=== PATIENT | female | born 1960 | race Caucasian/White ===

== ENCOUNTER 2019-06-18 10:11 | Emergency (ER) | payer BC ==
[~2019-06-18] VITALS: Ht 165.1 cm; Wt 108.9 kg
[2019-06-18] MEDS ORDERED: SYNTHROID175 MC1 PO (10:49)
[2019-06-18] MEDS ORDERED: Sudogest60 MG PO (11:13)
[2019-06-18] MEDS ORDERED: Augmentin 875-1 EACH PO (11:13)
== END 2019-06-18 11:56 | disposition home or self-care (01) ==
LOC: ER 10:11
DX: H65.92 Unspecified nonsuppurative otitis media, left ear (principal)
CPT/HCPCS: 99282

== ENCOUNTER → 2019-09-20 | Outpatient (CLI) | payer BC ==
[~2019-09-20] MED LIST: Augmentin 875-1 EACH PO; SYNTHROID175 MC1 PO; Sudogest60 MG PO
== END ==
LOC: LAB EV 08:03 → LAB SHORT 08:03
DX: M79.662 Pain in left lower leg (principal)
CPT/HCPCS: 85379

== ENCOUNTER 2020-09-05 09:21 | Day surgery (SDC) | payer BC ==
[~2020-09-05] VITALS: Ht 165.1 cm; Wt 107.8 kg
--- NOTE | 2020-09-05 10:51 | NUR ---
09/05/20 1051 Brigida Solomon ASSISTED PT TO RESTROOM 1040 PT UPDATED AT THIS TIME THAT IS STILL WORKING ON PROCEDURE AHEAD OF HER. WARM BLANKETS PROVIDED, PT STATES SHE IS COMFORTABLE AT THIS TIME.
== END 2020-09-05 12:00 | disposition home or self-care (01) ==
LOC: ORSCSDS 09:21
PROVIDERS: Student in an Organized Health Care Education/Training Program
PROC: 0DB48ZX Excision of Esophagogastric Junction, Via Natural or Artificial Opening Endoscopic, Diagnostic (ICD-10-PCS; principal; 2020-09-05 10:45)
PROC: 0DB58ZX Excision of Esophagus, Via Natural or Artificial Opening Endoscopic, Diagnostic (ICD-10-PCS; principal; 2020-09-05 10:45)
PROC: 0DB68ZX Excision of Stomach, Via Natural or Artificial Opening Endoscopic, Diagnostic (ICD-10-PCS; principal; 2020-09-05 10:45)
DX: R13.10 Dysphagia, unspecified (principal); I10 Essential (primary) hypertension; E78.5 Hyperlipidemia, unspecified; Z79.899 Other long term (current) drug therapy
CPT/HCPCS: 88305; 88342; J2704; J7120

== ENCOUNTER → 2021-01-01 | Outpatient (CLI) | payer BC ==
[~2021-01-01] MED LIST changes: +TELM40
== END | disposition home or self-care (01) ==
LOC: LAB SHORT 15:03 → LAB 15:03
DX: L57.8 Other skin changes due to chronic exposure to nonionizing radiation (principal); L81.4 Other melanin hyperpigmentation
CPT/HCPCS: 88305

== ENCOUNTER 2021-01-06 09:38 | Day surgery (SDC) | payer BC ==
[~2021-01-06] VITALS: Ht 165.1 cm; Wt 103.0 kg
[~2021-01-06 09:38] MED LIST changes: -TELM40
[2021-01-06] MEDS ORDERED: TELM40 (09:54)
== END 2021-01-06 11:51 | disposition home or self-care (01) ==
LOC: ORSCSDS 09:38
PROVIDERS: Student in an Organized Health Care Education/Training Program
PROC: 0DBH8ZX Excision of Cecum, Via Natural or Artificial Opening Endoscopic, Diagnostic (ICD-10-PCS; principal; 2021-01-06 11:00)
PROC: 0DBM8ZX Excision of Descending Colon, Via Natural or Artificial Opening Endoscopic, Diagnostic (ICD-10-PCS; principal; 2021-01-06 11:00)
PROC: 0DBN8ZX Excision of Sigmoid Colon, Via Natural or Artificial Opening Endoscopic, Diagnostic (ICD-10-PCS; principal; 2021-01-06 11:00)
DX: Z12.11 Encounter for screening for malignant neoplasm of colon (principal); Z86.010 Personal history of colon polyps; D12.0 Benign neoplasm of cecum; D12.4 Benign neoplasm of descending colon; D12.5 Benign neoplasm of sigmoid colon; E11.9 Type 2 diabetes mellitus without complications; K21.9 Gastro-esophageal reflux disease without esophagitis; Z79.899 Other long term (current) drug therapy
CPT/HCPCS: 88305; J0330; J0461; J2405; J2704

== ENCOUNTER → 2021-07-03 | Outpatient (CLI) | payer BC ==
[~2021-07-03] MED LIST changes: +TELM40
[2021-07-05 13:09] LABS: HPV 16 Negative (Negative); HPV 18 Negative (Negative); HPV OTHER HR TYPES Negative (Negative)
== END | disposition home or self-care (01) ==
LOC: LAB SHORT 13:10
PROVIDERS: Advanced Practice Midwife
DX: Z01.419 Encounter for gynecological examination (general) (routine) without abnormal findings (principal)
CPT/HCPCS: 87624; G0123

== ENCOUNTER 2024-04-24 05:47 | Day surgery (SDC) | payer BC ==
[2024-04-24] VITALS (19 sets, daily range): BP systolic 110–140; BP diastolic 70–92
[~2024-04-24] VITALS: Ht 167.6 cm; Wt 105.5 kg
[~2024-04-24 05:47] MED LIST changes: +EUTHYROX125 MCG PO; +EZET10 PO; +PANT20 PO; +Roxicodone5 MG PO; -SYNTHROID175 MC1 PO; -TELM40; +TELM40 PO; +TRAM50 PO
[2024-04-24] MEDS ORDERED: Lactated Ringer's 1,000 ML IV SCH ×2 (06:15→09:25)
[2024-04-24] MEDS ORDERED: CeFAZolin Sodium 2,000 MG in NS 100 ML IV SCH (06:15)
[2024-04-24] MEDS ORDERED: CeFAZolin Sodium 2,000 MG VIAL ONE (06:53)
--- NOTE | 2024-04-24 07:00 | NUR ---
Ambulatory in Day SurgeryPre-Op teaching done. Pt verbalizes understanding. History, Chart, Medications and Allergies reviewed before start of procedure.Patient confirms NPO status and agrees with scheduled surgery. Patient States Post-Procedure ride home has been arranged. Patient reports completing Chlorhexadine shower X2 prior to admission to hospital.
[2024-04-24] MEDS ORDERED: Bupivacaine 0.5% HCl 5 MG/ML 30MLVIAL ONE (07:01)
[2024-04-24] MEDS ORDERED: Midazolam HCl 1MG / ML 2ML Vial ONE (07:23)
[2024-04-24] MEDS ORDERED: Midazolam HCl 1MG / ML 2ML Vial IV ONE (07:25)
[2024-04-24] MEDS ORDERED: FentaNYL Citrate 50 MCG/ML 2 ML Injection ONE ×3 (07:28→09:52)
[2024-04-24] MEDS ORDERED: propofoL 20 ML IV ONE (07:28)
[2024-04-24] MEDS ORDERED: Rocuronium Bromide 10 MG/ML 5ML Injection IV ONE ×2 (07:30→07:54)
[2024-04-24] MEDS ORDERED: Ondansetron HCl 2 MG / ML 2ML Vial ONE (07:40)
[2024-04-24] MEDS ORDERED: Dexamethasone Sod Phos 10 MG/ML 1ML VIAL ONE (07:40)
[2024-04-24] MEDS ORDERED: Glycopyrrolate 0.2 MG/ML 5ML VIAL ONE (07:54)
[2024-04-24] MEDS ORDERED: Phenylephrine HCl 10mg/ml 1 ml Vial ONE (07:54)
[2024-04-24] MEDS ORDERED: Sugammadex Sodium 200 MG/2ML SDV (100 MG/ML) ONE (09:07)
[2024-04-24] MEDS ORDERED: Ketorolac Tromethamine 30mg Vial ONE (09:07)
[2024-04-24] MEDS ORDERED: Simethicone 80 MG Chew PO PRN (09:25)
[2024-04-24] MEDS ORDERED: OxyCODONE HCL 5 MG TAB PO PRN (09:25)
[2024-04-24] MEDS ORDERED: DiphenhydrAMINE HCL 25 MG Cap PO PRN (09:25)
[2024-04-24] MEDS ORDERED: FLU VACC TS2024-25(6MOS UP)/PF 45 MCG/0.5 ML SYRINGE IM SCH (09:25)
[2024-04-24] MEDS ORDERED: Acetaminophen 500 MG Tab PO PRN (09:25)
[2024-04-24] MEDS ORDERED: Ondansetron 4 MG TAB PO PRN (09:25)
[2024-04-24] MEDS ORDERED: Metoclopramide HCl 5MG / ML 2ML Vial IV PRN (09:30)
[2024-04-24] MEDS ORDERED: Naloxone HCl 0.4MG / ML 1ML Vial IV PRN (09:30)
[2024-04-24] MEDS ORDERED: HYDROmorphone HCl/Pf 1MG SYR IV PRN (09:30)
[2024-04-24] MEDS ORDERED: Metoclopramide HCl 10 MG Tab PO PRN (09:30)
[2024-04-24] MEDS ORDERED: Ondansetron HCl 2 MG / ML 2ML Vial IV PRN (09:30)
[2024-04-24] MEDS ORDERED: Ipratropium/Albuterol SulF 2.5-0.5MG/3 ML Amp ONE (09:51)
--- NOTE | 2024-04-24 10:55 | NUR ---
ARRIVAL TO SURGICAL UNIT VIA CHRISTIANO SMITH & SBA TO BATHROOM. HAS URGE TO VOID BUT UNABLE AFTER 5 MINS. ASSISTED TO BED. DENIES N/V OR ABD PAIN. REPORTS PELVIC PRESSURE, BUT DECLINES PAIN MEDS.
--- NOTE | 2024-04-24 11:30 | NUR ---
Patient transferred from surg procedure, Room setup. Diet set "as tolerated" Strict I/O's, Post p vitals needed. Came in alert, able to ambulate w assist to restroom, R.N. performed initial vitals and standby to restroom, SCD's, K Pad and fluids provided. here at bedside. Call light in reach and in a pleasant sleepy mood.
--- NOTE | 2024-04-24 13:20 | NUR ---
REPORT RECEIVED FROM EDDI ROCHA. ASSUMING CARE AT THIS TIME.
--- NOTE | 2024-04-24 15:00 | NUR ---
DISCHARGE SUMMARY PT A/OX4. AMB IN ROOM INDEPENDENTLY. HAS NOT REQUIRED PAIN MEDICATION. RX BY SURGEON AT HOME FOR PRN PAIN CONTROL. PT JASSI PO INTAKE WELL. INCISIONS C/D/I. DISCHARGE INSTRUCTIONS GONE OVER AND VERBALIZED UNDERSTANDING. PT TO F/U SCHEDULED WITH DR AIKEN. VOIDED X3 PRIOR TO DISCHARGE WITH NO RETENTION. ESCORTED TO CAR VIA WITH RIDE HOME BY .
[2024-04-24] MEDS ORDERED: OXYC5 PO (15:11)
[2024-04-24] MEDS ORDERED: ACET500 PO (15:12)
[2024-04-25] MEDS ORDERED: Levothyroxine Sodium 0.125 MG Tab PO SCH (06:00)
[2024-04-25] MEDS ORDERED: Pantoprazole Sodium 40 MG Tab PO SCH (06:00)
[2024-04-25] MEDS ORDERED: Losartan Potassium 50 MG Tab PO SCH (09:00)
[2024-04-25] MEDS ORDERED: Ezetimibe 10 MG Tab PO SCH (09:00)
== END 2024-04-24 15:50 | disposition home or self-care (01) ==
LOC: ORSCMMR 05:47 → ORD 07:30 → SURS 10:55 → ORSCMMR 15:50
PROVIDERS: Obstetrics & Gynecology
PROC: 0UT2FZZ Resection of Bilateral Ovaries, Via Natural or Artificial Opening With Percutaneous Endoscopic Assistance (ICD-10-PCS; principal; 2024-04-24 07:30)
PROC: 0UT9FZZ Resection of Uterus, Via Natural or Artificial Opening With Percutaneous Endoscopic Assistance (ICD-10-PCS; principal; 2024-04-24 07:30)
PROC: 0UT7FZZ Resection of Bilateral Fallopian Tubes, Via Natural or Artificial Opening With Percutaneous Endoscopic Assistance (ICD-10-PCS; principal; 2024-04-24 07:30)
DX: R10.2 Pelvic and perineal pain (principal); N80.03 Adenomyosis of the uterus; D25.9 Leiomyoma of uterus, unspecified; N84.0 Polyp of corpus uteri; D27.1 Benign neoplasm of left ovary; D27.0 Benign neoplasm of right ovary; I10 Essential (primary) hypertension; K21.9 Gastro-esophageal reflux disease without esophagitis; E03.9 Hypothyroidism, unspecified; E66.9 Obesity, unspecified; Z68.37 Body mass index [BMI] 37.0-37.9, adult; Z79.899 Other long term (current) drug therapy
CPT/HCPCS: 86850; 86900; 86901; 88307; J0690; J1100; J1885; J2250; J2371; J2405; J2704; J3010; J7120

== ENCOUNTER 2025-04-30 09:00 | Day surgery (SDC) | payer BC ==
[~2025-04-30] VITALS: Ht 167.6 cm; Wt 103.7 kg
[~2025-04-30 09:00] MED LIST changes: +ACET500 PO; +NS 500 ML IV ONE; +OXYC5 PO
[2025-04-30] MEDS ORDERED: CeFAZolin Sodium 2,000 MG VIAL ONE (09:11)
[2025-04-30] MEDS ORDERED: HYDCHL25 PO (09:17)
[2025-04-30] MEDS ORDERED: NS 500 ML IV ONE (09:21)
[2025-04-30] MEDS ORDERED: Midazolam HCl 1MG / ML 2ML Vial ONE (09:32)
[2025-04-30] MEDS ORDERED: FentaNYL Citrate 50 MCG/ML 2 ML Injection ONE (09:32)
[2025-04-30] MEDS ORDERED: Lidocaine 1%-Epineph 1:100000 20 ML MDV INJ ONE (09:58)
[2025-04-30 10:22] VITALS: BP 114/72
--- NOTE | 2025-04-30 10:36 | NUR ---
04/30/25 1036 Asha Beard PT PLEASANT AND COOPERATIVE WITH CARE PROVIDED. PT DENIED ANY PAIN, NO NAUSEA. PT ABLE TO TOLERATE HER FLUIDS WELL.
== END 2025-04-30 10:35 | disposition home or self-care (01) ==
LOC: ORSCSDS 09:00
PROVIDERS: Orthopaedic Surgery
PROC: 0LN70ZZ Release Right Hand Tendon, Open Approach (ICD-10-PCS; principal; 2025-04-30 10:30)
DX: M65.341 Trigger finger, right ring finger (principal); M65.351 Trigger finger, right little finger; I10 Essential (primary) hypertension; E78.5 Hyperlipidemia, unspecified; K21.9 Gastro-esophageal reflux disease without esophagitis; E07.9 Disorder of thyroid, unspecified; E66.9 Obesity, unspecified; Z68.36 Body mass index [BMI] 36.0-36.9, adult; Z79.899 Other long term (current) drug therapy
CPT/HCPCS: J0690; J2250; J3010; J7040